=== PATIENT | female | born 1990 | race African-American/Black ===

== ENCOUNTER 2017-07-26 10:17 | Emergency (ER) | payer OTHER ==
[~2017-07-26] VITALS: Ht 165.1 cm; Wt 99.1 kg
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
== END 2017-07-26 10:50 | disposition home or self-care (01) ==
LOC: FSED 10:17
DX: R07.0 Pain in throat (principal); J02.9 Acute pharyngitis, unspecified
CPT/HCPCS: 83518; 99283

== ENCOUNTER → 2020-11-17 | Outpatient (CLI) | payer OTHER | LOC: RAD 11:40 | PROVIDERS: ATTEND Obstetrics & Gynecology | DX: Z30.46 Encounter for surveillance of implantable subdermal contraceptive (principal) ==

== ENCOUNTER 2022-08-31 11:28 | Emergency (ER) | payer OTHER ==
[~2022-08-31] VITALS: Ht 165.1 cm; Wt 98.9 kg
[2022-08-31 12:29] LABS: BASOPHILS % 0.3 % (0.0-1.0); HEMOGLOBIN 11.7 g/dL (12.0-16.0); LYMPHOCYTES # (AUTO) 1.7 (1.0-3.2); LYMPHOCYTES % 22.4 % (18.0-39.1); MEAN CORPUSCULAR HEMOGLOBIN 25.2 pg (28-32); MEAN CORPUSCULAR HGB CONC 31.6 g/dL (31-35); MEAN CORPUSCULAR VOLUME 79.7 fL (81-99); MONOCYTES # (AUTO) 0.5 (0.2-0.8); MONOCYTES % 6.5 % (4.4-11.3); NEUTROPHILS # (AUTO) 5.3 (2.1-6.9); NEUTROPHILS % 70.4 % (38.7-80.0); PLATELET COUNT 174 x10e3/uL (140-360); RED BLOOD COUNT 4.64 x10e6/uL (3.6-5.1); RED CELL DISTRIBUTION WIDTH 13.8 % (11.7-14.4)
[2022-08-31 12:48] LABS: CLARITY,URINE CLEAR (CLEAR); COLOR,URINE YELLOW (YELLOW); KETONES,URINE NEGATIVE (NEGATIVE); LEUKOCYTE ESTERASE ,URINE NEGATIVE (NEGATIVE); NITRITE,URINE NEGATIVE (NEGATIVE); PROTEIN,URINE DIPSTICK NEGATIVE (NEGATIVE); URINE UROBILINOGEN 0.2 mg/dL (0.2 - 1)
[2022-08-31 12:49] LABS: AMPHETAMINES SCREEN,URINE NEGATIVE (NEGATIVE); BENZODIAZEPINES SCREEN,URINE NEGATIVE (NEGATIVE); PHENCYCLIDINE SCREEN,URINE NEGATIVE (NEGATIVE)
[2022-08-31 12:59] LABS: ALBUMIN 2.8 g/dL (3.5-5.0); ALBUMIN/GLOBULIN RATIO 0.7 (0.8-2.0); ANION GAP 14.5 mmol/L (8-16); CALCIUM 8.3 mg/dL (8.4-10.2); CREATININE, SERUM 0.66 mg/dL (0.57-1.11)
[2022-08-31 13:00] LABS: BACTERIA,URINE FEW /HPF; EPITHELIAL CELLS,URINE MODERATE /LPF; RBC,URINE 0-5 /HPF (0-5); WBC,URINE (MAN) 0-5 /HPF (0-5)
[2022-08-31 13:01] LABS: MUCUS,URINE FEW (RARE)
[2022-08-31 13:02] LABS: RENAL EPITHELIAL CELLS,URINE RARE
[2022-08-31 13:07] LABS: POTASSIUM 4.5 mmol/L (3.5-5.1)
[2022-08-31] MEDS ORDERED: LABETALOL HCL 5 MG/ML 20ML VIAL IV STA (13:14)
[2022-08-31] MEDS ORDERED: MAGNESIUM SULFATE 2GM/50ML 50 ML IV ONE (13:15)
[2022-08-31 13:19] LABS: SALICYLATE < 5.0 mg/dL (0-30)
[2022-08-31 17:09] LABS: INR 0.99; PROTHROMBIN TIME 13.6 seconds (11.9-14.5)
[2022-08-31 18:15] VITALS: O2SAT 100
== END 2022-08-31 18:45 | disposition other institution (70) ==
LOC: ER 11:34
DX: O26.91 Pregnancy related conditions, unspecified, first trimester (principal); R41.82 Altered mental status, unspecified; R20.0 Anesthesia of skin; R94.31 Abnormal electrocardiogram [ECG] [EKG]; Z20.822 Contact with and (suspected) exposure to COVID-19
CPT/HCPCS: 36415; 70450; 71045; 76815; 80053; 80307; 80320; 80329 ×2; 81001; 84484; 84702; 85025; 85610; 93005; 99284; U0002; 76817